=== PATIENT | female | born 1940 | race Two or more races ===

== ENCOUNTER 2024-09-03 07:13 | Emergency (ER) | payer MEDICARE, OTHER ==
[~2024-09-03] VITALS: Ht 157.5 cm; Wt 79.0 kg
--- NOTE | 2024-09-03 07:44 | ED.PDOC ---
Musculoskeletal HPI Comments 84 y/o F, with PMHX of breast cancer, TIA, HTN, and arthritis presents to the ED for CC of right knee and right hip pain. Patient states, she has been experiencing right knee and right hip pain x1week. Patient comments, that she has been unable to bear weight onto her right leg which is uncommon as she is completely ambulatory. Patient relays, that she had a total hip replacement x10 years ago. Patient's daughter comments, that patient receives Sinus injections every x6 months which patient is now overdue for. Patient denies trauma, recent fall, nausea, vomiting, or headache. No other associated symptoms, modifiers, recent injuries or sick contacts present at this time. Chief Complaint: Lower Extremity Time Seen by MD: 07:25 Reviewed Notes: Nurses Notes, Medications, Allergies Allergies: Coded Allergies: Sulfamethoxazole w/Trimethoprim (Verified Allergy, Unknown, 09/03/24) Trimethoprim (Verified Allergy, Unknown, 09/03/24) Uncoded Allergies: PENICILLIN (Allergy, Unknown, 09/03/24) SULFA (Allergy, Unknown, 09/03/24) Information Source: Patient, Relative (Child) Mode of Arrival: Wheelchair Location: Right Extremity Location: Hip, Knee Timing: Weeks Prehospital treatment: None Severity: Moderate Able to Move Extremity: Yes Bear Weight: No Pain: Moderate Mechanism: Spontaneous Circumstances: Spontaneous Onset of Symptoms: Spontaneous Symptoms: Swelling, Pain Last Tetanus: Unknown History of: Hip Operation Associated signs and symptoms: Knee pain, Hip pain Past Medical History PAST MEDICAL HISTORY: Arthritis, Cancer, HTN, TIA Surgical History (Other): 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 History: Unknown Family History Family History: Unknown Social History Smoker: Non-Smoker Alcohol: Denies ETOH Use Drugs: Denies Drug Use Lives In: Home Constitutional: denies: chills, diaphoresis, fatigue, fever, malaise, sweats, weakness, others EENTM: denies: blurred vision, double vision, ear bleeding, ear discharge, ear drainage, ear pain, ear ringing, eye pain, eye redness, hearing loss, mouth p ain, mouth swelling, nasal discharge, nose bleeding, nose congestion, nose pain, photophobia, tearing, throat pain, throat swelling, voice changes, others Respiratory: denies: cough, hemoptysis, orthopnea, SOB at rest, shortness of br eath, SOB with excertion, stridor, wheezing, others Cardiovascular: denies: chest pain, dizzy spells, diaphoresis, Dyspnea on exertion, edema, irregular heart beat, left arm pain, lightheadedness, palpitations, PND, syncope, others Gastrointestinal: denies: abdomen distended, abdominal pain, blood streaked bowels, constipated, diarrhea, dysphagia, difficulty swallowing, hematemesis, melena, nausea, poor appetite, poor fluid intake, rectal bleeding, rectal pain, vomiting, others Genitourinary: denies: abnormal vagina bleeding, burning, dyspareunia, dysuria, flank pain, frequency, hematuria, incontinence, pain, , vagina discharge, urgency, others Neurological: denies: dizziness, fainting, headache, left sided numbness, left sided weakness, numbness, paresthesia, pre-existing deficit, right sided numbness, right sided weakness, seizure, speech problems, tingling, tremors, weakness, others Musculoskeletal: reports: others (RIGHT HIP PAIN, RIGHT KNEE PAIN); denies: back pain, gout, joint pain, joint swelling, muscle pain, muscle stiffness, neck pain Integumetry: denies: bruises, change in color, change in hair/nails, dryness, laceration, lesions, lumps, rash, wounds, others Allergic/Immunocompromised: denies: Difficulty Healing, Frequent Infections, Hives, Itching, others Hematologic/Lymphatic: denies: anemia, blood clots, easy bleeding, easy bruising, swollen glands, others Endocrine: denies: excessive hunger, excessive sweating, excessive thirst, excessive urination, flushing, intolerance to cold, intolerance to heat, unexplained weight gain, unexplained weight loss, others Psychiatric: denies: anxiety, bipolar disorder, depression, hopeless, panic disorder, schizophrenia, sleepless, suicidal, others All Other Systems: Reviewed and Negative Physical Exam General Appearance: No Apparent Distress, Normal HEENT: Normal ENT Inspection, Pharynx Normal, TMs Normal Neck: Full Range of Motion, Non-Tender, Normal, Normal Inspection Respiratory: Chest Non-Tender, Lungs Clear, No Accessory Muscle Use, No Respiratory Distress, Normal Breath Sounds Cardiovascular: No Edema, No JVD, No Murmur, No Gallop, Normal Peripheral Pulses, Regular Rate/Rhythm Breast Exam: Deferred Gastrointestinal: No Organomegaly, Non Tender, No Pulsatile Mass, Normal Bowel Sounds, Soft Genitalia: Deferred Pelvic: Deferred Rectal: Deferred Extremities: No calf tenderness, Normal capillary refill, Normal inspection, Normal range of motion, No pedal edema, Tender (TENDERNESS TO RIGHT KNEE) Musculoskeletal : Apperance: Normal Neurologic: Alert, cash poster II-XII nml as Tested, No Motor Deficits, Normal Affect, Normal Mood, No Sensory Deficits Cerebellar Function: Normal Reflexes: Normal Skin: Dry, Normal Color, Warm Lymphatic: No Adenopathy Was a procedure done? Was a procedure done?: No Differential Diagnosis EXT Differential Diagnosis: Arthritis, Bursitis X-Ray, Labs, Meds, VS Vital Signs Date Time Temp Pulse Resp B/P (MAP) Pulse Ox O2 Delivery O2 Flow Rate FiO2 09/03/24 09:00 98.4 78 17 139/73 (95) 93 98.4 09/03/24 09:00 78 18 93 Room Air 09/03/24 07:28 97.9 87 18 143/72 (95) 90 97.9 Current Medications Medications (Trade) Dose Ordered Sig/Rajeev Route Start Time Stop Time Status Last Admin Ketorolac Tromethamine (Toradol Injection) 15 mg ONCE ONCE IM 09/03/24 07:45 09/03/24 07:46 DC 09/03/24 07:59 Acetaminophen (Tylenol Tablet) 650 mg ONCE ONCE PO 09/03/24 07:45 09/03/24 07:46 DC 09/03/24 07:59 Metoclopramide HCl (Reglan Tablet) 10 mg ONCE ONCE PO 09/03/24 09:00 09/03/24 09:01 DC 09/03/24 09:02 [place] [id number] Ph: [phone] DIAGNOSTIC IMAGING Diagnostic Imaging Report : [id number] Signed PATIENT: TIN BROWER ACCT: [id number] UNIT: [id number] : 1940 LOC: ER ROOM / BED: / AGE / SEX: 84 / F ADM STATUS: REG ER SERVICE [id number] ORDERING PHYSICIAN: ARIS GUSMAN MD PROCEDURE(s): RHIP - R HIP COMPLETE XRAY REASON: right hip pain s/p replacement ORDER NUMBER(s): [id number], ACCESSION NUMBER(s): [id number] Indication: right hip pain s/p replacement Technique: 2 views right hip Comparison: None FINDINGS/IMPRESSION: No radiographic evidence for acute fracture or dislocation. No significant soft tissue edema. There is total right hip arthroplasty in anatomic alignment. ATED BY: MAYKEL JIMENEZ MD DICTATED DATE/TIME: 09/03/24938 SIGNED BY: MAYKEL JIMENEZ MD SIGNED DATE/TIME: 09/03/24938 CC: [place] [id number] Ph: [phone] DIAGNOSTIC IMAGING Diagnostic Imaging Report : [id number] Signed PATIENT: TIN BROWER ACCT: [id number] UNIT: [id number] : 1940 LOC: ER ROOM / BED: / AGE / SEX: 84 / F ADM STATUS: REG ER SERVICE 5 ORDERING PHYSICIAN: ARIS GUSMAN MD PROCEDURE(s): RKN3 - R KNEE 3V XRAY REASON: right knee pain ORDER NUMBER(s): [id number], ACCESSION NUMBER(s): [id number] Indication: right knee pain Technique: 2 views of the right knee Comparison: None FINDINGS/IMPRESSION: No radiographic evidence for acute fracture or dislocation. Severe tri compartmental degenerative joint disease most pronounced within the lateral and patellofemoral compartments. Moderate suprapatellar effusion. ATED BY: MAYKEL JIMENEZ MD DICTATED DATE/TIME: 09/03/24936 SIGNED BY: MAYKEL JIMENEZ MD SIGNED DATE/TIME: 09/03/24936 CC: [place] [id number] Ph: [phone] DIAGNOSTIC IMAGING Diagnostic Imaging Report : [id number] Signed PATIENT: TIN BROWER ACCT: [id number] UNIT: [id number] : 1940 LOC: ER ROOM / BED: / AGE / SEX: 84 / F ADM STATUS: REG ER SERVICE 5 ORDERING PHYSICIAN: ARIS GUSMAN MD PROCEDURE(s): LUMB2 - LUMBAR SPINE 3 VIEW REASON: lower back pain ORDER NUMBER(s): [id number], ACCESSION NUMBER(s): [id number] Indication: lower back pain Technique: 2 views lumbar spine Comparison: None FINDINGS/IMPRESSION: L2 compression deformity with 25% loss height. L3 compression deformity with 25% loss height. L5 compression deformity with 25% loss height. These appear sclerotic/chronic in appearance. Correlate with pain symptoms. MRI lumbar spine can be obtained to further characterize clinical concern for an acute fracture. There is moderate to severe multilevel disc space narrowing most pronounced at L1-2 and L2-3 Lumbar levocurvature. Moderate to advanced lumbar facet hypertrophic changes with multilevel moderate to severe neural foraminal stenosis especially pronounced at L3-4 and L4-5 Atherosclerotic calcification disease. Total right hip arthroplasty in anatomic alignment ATED BY: MAYKEL JIMENEZ MD DICTATED DATE/TIME: 09/03/24935 SIGNED BY: MAYKEL JIMENEZ MD SIGNED DATE/TIME: 09/03/24935 CC: Time of 1ST Reevaluation: 07:55 Reevaluation 1ST: Unchanged Patient Education/Counseling: Diagnosis, Treatment Family Education/Counseling: No Family Present Additional Information The following tests were ordered, and results were reviewed by me: RIGHT HIP COMPLETE XR, RIGHT KNEE XR, LUMBAR SPINE VIEW XR Additional Information was gathered from interviewing the following independent historians: DAUGHTER I reviewed and agreed with the following test results read by other providers: RIGHT HIP COMPLETE XR, RIGHT KNEE XR, LUMBAR SPINE VIEW XR I discussed treatment and results with medical personnel and: Patient Comprehensive systems review obtained and negative except for what is stated in the HPI. Departure 1 Departure Time of Disposition: 10:13 (Patient has a arthritis of right knee and lower back. Discussed with the patient's she reports her symptoms have dramatically improved after receiving Reglan. We will discharge patient home with a prescription for Reglan. Patient's said she will follow up with To her orthopedic surgeon.) Impression: Primary Impression: Lumbar stenosis Qualified Codes: M48.061 - Spinal stenosis, lumbar region without neurogenic claudication Additional Impression: Arthritis of knee, right Disposition: 01 HOME / SELF CARE / HOMELESS Condition: Stable Additional Instructions: You have arthritis in your lower back in your knee. You were prescribed medication. Please take as directed. You should follow up with your orthopedic surgeon next week. If your symptoms worsen or you have any other concerns please return to the emergency room. e-Prescriptions Metoclopramide Hcl (Reglan) 10 Mg/10 Ml So 10 MG PO BID PRN for 5 Days, #100 ML Prov: ARIS GUSMAN MD 09/03/24 Discharged With: Self, Spa Attendant Critical Care Note Critical Care Time?: No Stability Stability form required: No Heart Score Heart Score: Heart Score Response (Comments) Value History N/A 0 EKG N/A 0 Age N/A 0 Risk Factors N/A 0 Troponin N/A 0 Total 0 I personally scribed for ARIS GUSMAN MD ([email or web address]) on 09/03/24 at 07:44. Electronically submitted by Winnie Lopez ([email or web address]). I personally scribed for ARIS GUSMAN MD ([email or web address]) on 09/03/24 at 08:34. Electronically submitted by Winnie Lopez ([email or web address]). I personally scribed for ARIS GUSMAN MD ([email or web address]) on 09/03/24 at 10:13. Electronically submitted by Winnie Lopez ([email or web address]). ARIS GUSMAN MD Sep 03, 2024 07:44
[2024-09-03] MEDS: KETOROLAC TROMETH 30 MG/ML 1ML VIAL IM ONE (07:59)
[2024-09-03] MEDS: ACETAMINOPHEN 325 MG TAB PO ONE (07:59)
[2024-09-03] MEDS: METOCLOPRAMIDE HCL 10 MG TAB PO ONE (09:02)
--- NOTE | 2024-09-03 09:39 | DVH ---
Indication: lower back pain Technique: 2 views lumbar spine Comparison: None FINDINGS/IMPRESSION: L2 compression deformity with 25% loss height. L3 compression deformity with 25% loss height. L5 co mpression deformity with 25% loss height. These appear sclerotic/chronic in appearance. Correlate w ith pain symptoms. MRI lumbar spine can be obtained to further characterize clinical concern for an acute fracture. There is moderate to severe multilevel disc space narrowing most pronounced at L1-2 and L2-3 Lumbar levocurvature. Moderate to advanced lumbar facet hypertrophic changes with multilevel moderate to severe neural fora shannan stenosis especially pronounced at L3-4 and L4-5 Atherosclerotic calcification disease. Total right hip arthroplasty in anatomic alignment
--- NOTE | 2024-09-03 09:40 | DVH ---
Indication: right knee pain Technique: 2 views of the right knee Comparison: None FINDINGS/IMPRESSION: No radiographic evidence for acute fracture or dislocation. Severe tricompartmental degenerative join t disease most pronounced within the lateral and patellofemoral compartments. Moderate suprapatellar effusion.
--- NOTE | 2024-09-03 09:42 | DVH ---
Indication: right hip pain s/p replacement Technique: 2 views right hip Comparison: None FINDINGS/IMPRESSION: No radiographic evidence for acute fracture or dislocation. No significant soft tissue edema. There i s total right hip arthroplasty in anatomic alignment.
[2024-09-03] MEDS ORDERED: MET10LQ PO (10:17)
[2024-09-03 10:24] VITALS: BP 126/71; PULSE 83; RESP 16; TEMP 98.2; O2SAT 93
== END 2024-09-03 10:25 | disposition home or self-care (01) ==
LOC: ER 07:13
DX: M48.061 Spinal stenosis, lumbar region without neurogenic claudication (principal); M17.11 Unilateral primary osteoarthritis, right knee; I10 Essential (primary) hypertension; Z86.73 Personal history of transient ischemic attack (TIA), and cerebral infarction without residual deficits; Z96.641 Presence of right artificial hip joint; Z88.0 Allergy status to penicillin; Z88.1 Allergy status to other antibiotic agents; Z88.2 Allergy status to sulfonamides
CPT/HCPCS: 72100; 73502; 73562; 96372; 99284; J1885; J8597